=== PATIENT | male | born 1935 | race Caucasian/White ===

== ENCOUNTER → 2019-11-21 | Outpatient (CLI) | payer MEDICARE ==
--- NOTE | 2019-11-21 16:10 | RAD ---
INDICATION: Reason: Left Leg Pain and Swelling / Spl. Instructions: / History: COMPARISON: None. TECHNIQUE: Grayscale, color and doppler ultrasound images were obtained of the left lower extremity venous vasculature. LEFT: No thrombus identified in the common femoral vein, femoral vein, popliteal vein or visualized calf veins. IMPRESSION: * No thrombus identified in deep venous system of the left lower extremity. Electronically signed by: Matt Leyva MD (11/21/2019 4:07 PM) [id number]
== END | disposition home or self-care (01) ==
LOC: US 15:14
PROVIDERS: ATTEND Family Medicine
DX: R22.42 Localized swelling, mass and lump, left lower limb (principal); M79.605 Pain in left leg
CPT/HCPCS: 93971

== ENCOUNTER 2021-01-19 19:05 | Emergency (ER) | payer MEDICARE ==
[~2021-01-19] VITALS: Ht 182.9 cm; Wt 86.4 kg
[2021-01-19 20:32] VITALS: BP 226/100
--- NOTE | 2021-01-19 21:04 | ED.ADGEN ---
Past Medical History Smoking Status: Never Smoker Alcohol Use: None General Adult EDM: Chief Complaint: FINGER INJURY HPI: HPI: Patient is a 85 year old male presenting with deformity to his left middle finger. Patient tripped over his granddaughters dog and caught himself with his hand. Granddaughter trying to pull on it to reduce it at home prior to arrival. Patient denies any other injuries. Takes an aspirin but no other blood thinners. He is right-handed Review of Systems: Review of Systems: All other systems within normal limits except for as noted in the HPI Allergies: Allergies: Allergies Coded Allergies Type Severity Reaction Last Updated Verified No Known Drug Allergies 01/19/21 No Physical Exam: PE: Constitutional: Well developed, well nourished, no acute distress, non-toxic appearance. [] HENT: Normocephalic, atraumatic, bilateral external ears normal, nose normal. [] Eyes: PERRLA, conjunctiva normal, no discharge. [] Neck: No rigidity, supple, no stridor. [] Cardiovascular: Regular rate and rhythm, brisk cap refill [] Lungs & Thorax: Non labored symmetric respirations, no tachypnea or respiratory distress [] Abdomen: Soft, nondistended. Skin: Warm, dry, no erythema, no rash. [] Back: Unremarkable Extremities: No deformities other than ulnar deviation of the left third finger at the PIP joint, range of motion grossly intact, no lower extremity edema [] Neurologic: Alert and oriented X 3, no focal deficits noted. [] Psychologic: Affect normal, judgement normal, mood normal. [] Current Patient Data: Vital Signs: Vital Signs Date Time Temp Pulse Resp B/P (MAP) Pulse Ox O2 Delivery O2 Flow Rate FiO2 01/19/21 20:32 97.5 60 16 226/100 (142) 98 Room Air 97.5 EKG: EKG: [] Heart Score: C/O Chest Pain: No Risk Factors: Risk Factors: DM, Current or recent (<one month) smoker, HTN, HLP, family history of CAD, obesity. Risk Scores: Score 0 - 3: 2.5% MACE over next 6 weeks - Discharge Home Score 4 - 6: 20.3% MACE over next 6 weeks - Admit for Clinical Observation Score 7 - 10: 72.7% MACE over next 6 weeks - Early Invasive Strategies Radiology/Procedures: Radiology/Procedures: [facility] [address] [place] [address] IMAGING REPORT Signed PATIENT: KAMILLA GOODSON ACCOUNT: [id number] : 1935 LOCATION: ER AGE: 85 SEX: M EXAM STATUS: DEP ER ORD. PHYSICIAN: GIRISH CROOKS MD REASON: dislocation PROCEDURE: FINGER(S) LEFT Exam: Left finger 3 views INDICATION: Dislocation TECHNIQUE: Frontal view of the left hand with oblique and lateral views of the third digit Comparisons: None FINDINGS: Dislocation at the third digit PIP joint. Volar plate fracture of the middle phalanx noted. Soft tissues are unremarkable. Joint spaces are well-maintained. IMPRESSION: Dislocation of the third digit PIP joint. Volar plate fracture at the middle phalanx is noted. Electronically signed by: Marycarmen Escudero MD (01/19/2021 9:15 PM) OBIE DICTATED and SIGNED BY: MARYCARMEN ESCUDERO MD DATE: 01/19/21 [id number] [facility] [address] [place], [place] [id number] IMAGING REPORT Signed PATIENT: KAMILLA GOODSON ACCOUNT: [id number] : 1935 LOCATION: ER AGE: 85 SEX: M EXAM STATUS: DEP ER ORD. PHYSICIAN: GIRISH CROOKS MD REASON: post reduction PROCEDURE: FINGER(S) LEFT Exam: Left finger 2 views INDICATION: Dislocation TECHNIQUE: Frontal and lateral views of the third digit Comparisons: None FINDINGS: Improved alignment at the third digit PIP joint. There is redemonstration of the following plate fracture with osseous fragments noted anteriorly. Mild surrounding soft tissue swelling. Bone mineralization is normal. IMPRESSION: Improved alignment of the third digit PIP joint with redemonstration of volar plate fracture of the middle phalanx Electronically signed by: Marycarmen Escudero MD (01/19/2021 9:16 PM) OBIE DICTATED and SIGNED BY: MARYCARMEN ESCUDERO MD DATE: 01/19/21 [id number] [] Impression: Closed reduction performed without analgesia. Patient consented to procedure prior. Discussed risks and benefits of incomplete reduction. Countertraction was used to exaggerate deformity and then pulled the finger out to successfully reduce the left third PIP joint. Confirmed with x-ray Course & Med Decision Making: Course & Med Decision Making Pertinent Labs and Imaging studies reviewed. (See chart for details) [] Dragon Disclaimer: Dragon Disclaimer: This electronic medical record was generated, in whole or in part, using a voice recognition dictation system. Departure Departure Impression: Primary Impression: Dislocation of left middle finger Disposition: HOME / SELF CARE / HOMELESS Condition: IMPROVED Referrals: ASHLEIGH HERRERA MD (PCP) Patient Instructions: Finger Dislocation GIRISH CROOKS MD Jan 19, 2021 21:04
--- NOTE | 2021-01-19 21:18 | RAD ---
Exam: Left finger 3 views INDICATION: Dislocation TECHNIQUE: Frontal view of the left hand with oblique and lateral views of the third digit Comparisons: None FINDINGS: Dislocation at the third digit PIP joint. Volar plate fracture of the middle phalanx noted. Soft tiss ues are unremarkable. Joint spaces are well-maintained. IMPRESSION: Dislocation of the third digit PIP joint. Volar plate fracture at the middle phalanx is noted. Electronically signed by: Marycarmen Jernigan MD (01/19/2021 9:15 PM) OBIE
--- NOTE | 2021-01-19 21:19 | RAD ---
Exam: Left finger 2 views INDICATION: Dislocation TECHNIQUE: Frontal and lateral views of the third digit Comparisons: None FINDINGS: Improved alignment at the third digit PIP joint. There is redemonstration of the following plate frac ture with osseous fragments noted anteriorly. Mild surrounding soft tissue swelling. Bone mineralizat ion is normal. IMPRESSION: Improved alignment of the third digit PIP joint with redemonstration of volar plate fracture of the m iddle phalanx Electronically signed by: Marycarmen Jernigan MD (01/19/2021 9:16 PM) OBIE
== END 2021-01-19 21:10 | disposition home or self-care (01) ==
LOC: ER 19:05
DX: S63.283A Dislocation of proximal interphalangeal joint of left middle finger, initial encounter (principal); W01.0XXA Fall on same level from slipping, tripping and stumbling without subsequent striking against object, initial encounter; Y93.89 Activity, other specified; Y92.89 Other specified places as the place of occurrence of the external cause; Y99.8 Other external cause status
CPT/HCPCS: 26770; 73140; 99284

== ENCOUNTER 2021-07-05 11:32 | Observation (INO) | payer MEDICARE ==
--- NOTE | 2021-07-05 13:13 | NUR ---
PT SENT FROM RADIOLOGY TO OP FOR [facility] CATH/LEG BAG PLACEMENT. AFTER MULTIPLE ATTEMPTS WITH 10F, 16F, 18F UNABLE TO PLACE FOR CATH OR STRAIGHT CATH DUE TO RESISTANCE. DR HERRERA NOTIFIED AND LABORER [employer] PAGED FOR BED PLACEMENT. PTS GRAND DAUGHTER TROY CALLED AND INFORMED.
--- NOTE | 2021-07-05 14:50 | NUR ---
PT TO ROOM 410. REPORT GIVEN TO ROSAURA MORELAND. UROLOGY CONSULT CALLED, DR HERRERA NOTIFIED OF ROOM NUMBER
--- NOTE | 2021-07-05 16:08 | NUR ---
Left message with Dr Hooker office in regards to new patient orders.
--- NOTE | 2021-07-05 16:10 | PDOC2 ---
UROLOGY CONSULT Date of Service DATE: 07/05/21 TIME: 16:04 Reason for Consult Reason for Consult: urinary retention Identification/Chief Complaint Chief Complaint difficulty voiding History of Present Illness Reason for Visit: 85yo male admitted to [facility] for urinary retention. He saw Dr. Hooker today for shingles and also c/o difficulty voiding. He was sent to radiology for US that showed elevated pvr, then sent to outpatient for freitas placement. There, freitas was unable to be placed so he was admitted for urology consultation. Pt endorses increasingly difficulty voiding over the past 1-2 weeks. Notes hesitancy and weak stream, only getting out a few dribbles of urine here and there. He is unsure if he takes flomax. Had TURP many years ago. Denies dysuria or hematuria. Past Medical History Renal/: Benign prostatic enlarg. Past Surgical History Past Surgical History: Other (TURP) Family History Family History: Other (not pertinent) Current Medications Current Medications Pt is unsure of current medications Allergies Allergies: Coded Allergies: No Known Drug Allergies (Unverified , 01/19/21) ROS Review Of Systems: CONSTITUTIONAL: No fever or chills EYES: No recent changes SKIN: shingles CARDIOVASCULAR: No chest pain, syncope, palpitations, or edema RESPIRATORY: No SOB or cough GASTROINTESTINAL: No nausea, vomiting or abdominal pain NEUROLOGICAL: No headaches or weakness ENDOCRINE: No cold or heat intolerance GENITOURINARY: No urgency or frequency of urination MUSCULOSKELETAL: No back pain or joint pain LYMPHATICS: No enlarged lymph nodes PSYCHIATRIC: No anxiety or depression Physical Exam Physical Exam: General: Pleasant, no acute distress, well groomed Eyes: conjunctiva anicteric, eyes full range of motion ENT: moist oral mucosa, normal dentition Neck: Trachea midline, no masses Respiratory: unlabored breathing, not using accessory muscles, no crackles or wheezes Cardiovascular: Regular rate and rhythm, no peripheral edema Abdomen: nontender, nondistended, no hepatosplenomegaly, no masses : erythematous lesions to scrotum and penis Skin: no rashes or skin lesions on visualized skin Psych: normal mood, affect. Alert and oriented x 3. Assessment/Plan Assessment/Plan Acute urinary retention RN working on med list. If pt not taking flomax, would start 0.4mg qd. If taking, would increase to 0.4mg bid. Check UA, d/w RN. Bladder scan upon my visit: 475mL. Pt prepped appropriately. A 12Fr freitas was inserted into the bladder without difficulty. Yellow urine draining. Balloon instilled with 10mL. Secured to bed bag and stat lock on leg. D/c per hospitalist. Voiding trial in the clinic in 3-5 days. JAKY ISRAEL Jul 05, 2021 16:10
--- NOTE | 2021-07-05 16:20 | NUR ---
call back from Dr Hooker, advised that urology saw patient and was able to get freitas placed and patient was ok to go home with a leg bag. verbal order to discharge patient home and continue home meds.
--- NOTE | 2021-07-05 16:53 | NUR ---
unable to complete admission due to patient discharging.
--- NOTE | 2021-07-05 17:05 | NUR ---
pt discharged home, discharge instructions reviewed with patient and his granddaughter Luci ([phone]). Advised patient and family he should follow up with urology and PCP in the next few days. advised instructions in regards to freitas and leg bag change. Luci voiced understanding. no other needs. pt transported off unit via wheelchair with all belongings.
== END 2021-07-05 17:05 | disposition home or self-care (01) ==
LOC: OPS 11:32 → 4 NORTH 12:45
PROVIDERS: ADMIT Family Medicine; ATTEND Family Medicine
DX: R33.9 Retention of urine, unspecified (principal); R79.89 Other specified abnormal findings of blood chemistry; Z79.899 Other long term (current) drug therapy; Z98.890 Other specified postprocedural states
CPT/HCPCS: 51702; G0378; G0379

== ENCOUNTER → 2021-07-05 | Outpatient (CLI) | payer MEDICARE ==
--- NOTE | 2021-07-06 11:22 | RAD ---
EXAM: Bladder sonogram. HISTORY: Urinary retention. TECHNIQUE: Sonographic imaging of the bladder was performed. COMPARISON: None. FINDINGS: The prevoid bladder volume is 349.1 cc. The post void bladder volume is 227.9 cc. IMPRESSION: Post void bladder residual of 227.9 cc. Electronically signed by: Janell Randle MD (07/06/2021 8:54 AM) [facility]
== END ==
LOC: US 10:22
PROVIDERS: ATTEND Family Medicine
DX: N39.43 Post-void dribbling (principal)
CPT/HCPCS: 76857